=== PATIENT | male | born 2000 | race Caucasian/White ===

== ENCOUNTER 2021-07-12 11:21 | Emergency (ER) | payer OTHER, SELFPAY ==
[2021-07-12 11:32] VITALS: BP 118/68; PULSE 96; RESP 16; TEMP 36.9; O2SAT 99
--- NOTE | 2021-07-12 11:34 | ED.NAVMDI ---
HPI - Nausea/Vomiting/Diarrhea General Chief complaint: Nausea/Vomiting/Diarrhea Stated complaint: Chills/Vomiting Time Seen by Provider: 07/12/21 11:34 Source: patient and RN notes reviewed History of Present Illness HPI Narrative: Patient is a 20-year-old male who presents the urgent care with complaints of nausea, vomiting and chills. Patient states that the chills started last night and he had a fever of 103.1 Fahrenheit. Patient has been taking Tylenol for the fever and chills. Currently denies of any abdominal pain or nausea. Denies of any known exposure to COVID. States that he has had a COVID-vaccine. Patient taste weekly for COVID and last week that was negative. Patient tested this morning for COVID and is currently waiting on results. Patient states that he needs to rule out influenza for work. No other acute complaints. No acute distress noted. Patient on the plan of care. Some parts of this dictation were generated by voice recognition software and may contain typographical and/or grammatical inaccuracies. Related Data Home Medications Medication Instructions Recorded Confirmed No Home Medications 07/12/21 07/12/21 Allergies Allergy/AdvReac Type Severity Reaction Status Date / Time No Known Allergies Allergy Verified 07/12/21 11:44 Review of Systems Review of Systems: CONSTITUTIONAL: Reports fever, chills, sweats EYES: Denies visual changes, redness, or discharge. ENT: Denies rhinorrhea, congestion, sore throat, or otalgia. CARDIOVASCULAR: Denies chest pain, palpitations, or edema. RESPIRATORY: Denies cough or dyspnea. GASTROINTESTINAL: Reports of intermittent nausea, vomiting GENITOURINARY: Denies dysuria or hematuria. SKIN: Denies rash or itching. MUSCULOSKELETAL: Denies back pain, joint pain, or myalgia. NEUROLOGIC: Denies headache, numbness, or weakness. All other systems reviewed are negative, except as documented in HPI. PMFSH Comments At the time of my signature, I reviewed and agree with the nursing past medical, surgical, social, and family history. There is no relevant family history pertinent to the patient complaint. Exam Narrative: GENERAL: This is a well-nourished, well-developed patient, in no apparent distress. HEAD: normocephalic, atraumatic. EYES: PERRL. Sclera clear/white. Vision is grossly intact. EARS: External ears normal, auditory canals clear and without drainage, TMs normal without perforation. Hearing grossly intact. NOSE: External nose normal with no obvious nasal discharge, nares without redness, no rhinorrhea. THROAT: Mucous membranes moist. Moderate erythema to the posterior oropharynx with moderate postnasal drainage. She NECK: Neck supple, non-tender without lymphadenopathy CARDIOVASCULAR: Regular rate and rhythm without murmurs, gallops, or rubs. RESPIRATORY: Clear to auscultation. Breath sounds equal bilaterally. No wheezes, rales, or rhonchi. GASTROINTESTINAL: Abdomen soft, non-tender, nondistended. Bowel sounds are active. No guarding. SKIN: warm, intact with no suspicious lesions or rash, good texture and turgor. NEURO: awake, alert, and oriented to person, place and time. There were no obvious focal neurologic abnormalities. EXTREMITIES: No clubbing, cyanosis, or edema. Course Course Level of Care: Express Care Visit Vital Signs Vital signs: Vital Signs Temperature 98.4 F 07/12/21 11:32 Pulse Rate 96 07/12/21 11:32 Respiratory Rate 16 07/12/21 11:32 Blood Pressure 118/68 07/12/21 11:32 Pulse Oximetry 99 07/12/21 11:32 Temperature 98.4 F 07/12/21 11:32 Pulse Rate 96 07/12/21 11:32 Respiratory Rate 16 07/12/21 11:32 Blood Pressure 118/68 07/12/21 11:32 Pulse Oximetry 99 07/12/21 11:32 Reviewed MDM - Nausea/Vomiting/Diarrhea MDM Narrative Medical decision making narrative: Reviewed lab results with the patient. He is aware that flu swab was negative. Advised the patient to remain quarantine until he gets his rap
== END 2021-07-12 12:10 | disposition home or self-care (01) ==
PROVIDERS: Emergency Provider Nurse Practitioner Family
DX: R50.9 Fever, unspecified (principal); R11.2 Nausea with vomiting, unspecified
CPT/HCPCS: 87804; 99213; G0463